=== PATIENT | female | born 1985 | race American Indian/Alaskan Native ===

== ENCOUNTER 2018-03-27 22:49 | Emergency (ER) | payer MEDICAID ==
[2018-03-28] MEDS ORDERED: FUL-GLO OP ONE (00:04)
[2018-03-28] MEDS ORDERED: TETRACAINE 0.5% OU ONE (00:05)
--- NOTE | 2018-03-28 00:10 | Emergency Department Report ---
Eye Injury/Foreign Body - HPI Eye Location: Right Severity: Moderate Eye Symptoms: Eye Pain: Yes, Blurred Vision: Yes, Eye Redness: No, Grinding/ Hammering Metal: No, Used Eye Protection: No, Contact Lens Use: No, Recalls Injury: No, Photophobia: No Other History: This is a 33-year-old -[place] female who presents with pain to the right eye that started around 1930. She is a sharp pain and clear drainage from right eye. She thought it was associated with allergies to pollen and took Benadryl with no improvement in his symptoms. She does wear contacts but did not wear her contacts today. She decided to apply Visine and some right eye which caused burning and pain to increase. Her vision is the same in left eye and hazy vision out of right. She has noticed redness and irritation in her right eye. Denies swelling, grinding sensation, feeling of curtain over, and fever. ED Review of Systems ROS: Stated complaint: RIGHT EYE PAIN Other details as noted in HPI Constitutional: denies: chills, fever Eyes: eye pain (right eye), eye discharge (right), vision change (hazy vision on right eye) Respiratory: denies: cough, shortness of breath, wheezing Cardiovascular: denies: chest pain, palpitations Gastrointestinal: denies: abdominal pain, nausea, vomiting, diarrhea Neurological: denies: headache, weakness, paresthesias Psychiatric: denies: anxiety, depression ED Past Medical Hx - Past Medical History Previous Medical History?: Yes Hx Hypertension: No Hx Asthma: Yes Additional medical history: constipation - Surgical History Past Surgical History?: Yes Hx Appendectomy: Yes Additional Surgical History: Hernia Repair (Abdominal) - Social History Smoking Status: Never Smoker Substance Use Type: Alcohol - Medications Home Medications: Home Medications Medication Instructions Recorded Confirmed Last Taken Type Albuterol Sulfate [Proair 90 mcg IH Q4HR PRN #2 [email or web address] 12/11/16 12/13/16 Unknown Rx Respiclick] Benzonatate [Tessalon Perles] 100 mg PO Q8HR PRN #30 capsule 12/11/16 12/13/16 Unknown Rx Ketorolac [Toradol] 10 mg PO Q6H PRN #20 tablet 12/11/16 12/13/16 Unknown Rx Fluticasone [Flonase] 1 spray NS QDAY #1 bottle 12/13/16 Unknown Rx traMADol [Ultram 50 MG tab] 50 mg PO Q6HR PRN #10 tablet 12/13/16 Unknown Rx Naproxen Sodium [Anaprox Ds] 550 mg PO BID PRN #15 tablet 03/28/18 Unknown Rx prednisoLONE ACETATE [Omnipred 1% 1 - 2 drop OP QID #1 bottle 03/28/18 Unknown Rx Eye Drops] Eye Injury Exam - Exam General: Vital signs noted. No distress. Alert and acting appropriately. - Visual Acuity Left Vision Acuity Degree: 20/25 Right Vision Acuity Degree: 20/40 Bilateral Vision Acuity Degree: 20/25 Eye Exam: Right Injection, Right Fluorescein Uptake (inflammation in the anterior chamber), Right Photophobia, Both EOMI, Neither Chemosis, Neither Abnormal Pupil, Neither Eye Foreign Body, Neither Lid Foreign Body, Neither Mucous Discharge, Neither Purulent Discharge, Neither Corneal Edema ED Course Vital Signs 03/27/18 03/27/18 22:56 23:04 Temperature 98.3 F 98.3 F Pulse Rate 86 83 Respiratory 18 18 Rate Blood Pressure 153/101 152/101 O2 Sat by Pulse 98 99 Oximetry Vital Signs 03/27/18 03/27/18 03/28/18 22:56 23:04 00:57 Temperature 98.3 F 98.3 F 98.6 F Pulse Rate 86 83 88 Respiratory 18 18 17 Rate Blood Pressure 153/101 152/101 Blood Pressure 135/91 [Right] O2 Sat by Pulse 98 99 100 Oximetry ED Medical Decision Making - Medical Decision Making This is a 33 y.o. female that presents with right eye pain that started this afternoon. Patient is stable and was examined by me. Vitals stable. Currently using OTC Visine for eyes and cool compresses with no improvement of symptoms. Given tramadol 50 mg by mouth once. Physical examined with العراقي light, tetracaine, & flurosceine. Physical assessment susceptible of uveitis of right eye. Start prednisolone 1% gtts. Continue using warm compresses for swelling. Follow up with ophthalmology in 24-48 hours. Critical care attestation.: If time is entered above; I have spent that time in minutes in the direct care of this critically ill patient, excluding procedure time. ED Disposition Clinical Impression: Uveitis, Acute right eye pain Disposition: DC-01 TO HOME OR SELFCARE Is pt being admited?: No Does the pt Need Aspirin: No Condition: Stable Instructions: Eye Pain (ED) Additional Instructions: Cool or warm compresses as needed for swelling. Apply steroid drops 4 times a day as prescribed for 7 days. Follow-up with ophthalmology in 24-48 hours. Return to Primary Care Provider or ER if visual changes, swelling unresolved, and pain unresolved. Prescriptions: Naproxen Sodium [Anaprox Ds] 550 mg PO BID PRN #15 tablet PRN Reason: Pain prednisoLONE ACETATE [Omnipred 1% Eye Drops] 1 - 2 drop OP QID #1 bottle Referrals: [facility] [Provider Group] - 3-5 Days [facility] [Provider Group] - 3-5 Days Time of Disposition: 00:52 Print Language: SWISS
[2018-03-28] MEDS ORDERED: ULTRAM PO ONE (00:46)
[2018-03-28 01:01] VITALS: BP 135/91
== END 2018-03-28 01:20 | disposition home or self-care (01) ==
LOC: ED 22:49
DX: H20.9 Unspecified iridocyclitis (principal); J45.909 Unspecified asthma, uncomplicated; Z90.49 Acquired absence of other specified parts of digestive tract; Z79.899 Other long term (current) drug therapy; Z91.018 Allergy to other foods

== ENCOUNTER 2019-04-12 13:05 | Emergency (ER) | payer MEDICAID ==
[2019-04-12 13:27] VITALS: BP 153/86
--- NOTE | 2019-04-12 13:28 | Emergency Department Report ---
Blank Doc - Documentation Documentation: This is a 34-year-old female that presents with left arm pain and left middle finger pain. Stated that she wake up this way. Denies any trauma. Stated is unable to move finger. This initial assessment/diagnostic orders/clinical plan/treatment(s) is/are subject to change based on patient's health status, clinical progression and re- assessment by fellow clinical providers in the ED. Further treatment and workup at subsequent clinical providers discretion. Patient/guardians urged not to elope from the ED as their condition may be serious if not clinically assessed and managed. Initial orders include: 1- Patient sent to [facility] for further evaluation and treatment
[2019-04-12] MEDS ORDERED: NORCO 7.5/325 PO ONE (13:40)
--- NOTE | 2019-04-12 13:40 | Emergency Department Report ---
HPI - General Chief Complaint: Extremity Injury, Upper Time Seen by Provider: 04/12/19 13:26 - HPI HPI: Patient is a 34-year-old -[place] female who comes to the ER stating that she woke up with her finger stuck in a nearly flexed position. She denies any trauma. She denies a history of this in the past. ED Past Medical Hx - Past Medical History Previous Medical History?: Yes Hx Hypertension: No Hx Asthma: Yes Additional medical history: constipation - Surgical History Past Surgical History?: Yes Hx Appendectomy: Yes Additional Surgical History: Hernia Repair (Abdominal) - Family History Family history: no significant - Social History Smoking Status: Never Smoker - Medications Home Medications: Home Medications Medication Instructions Recorded Confirmed Last Taken Type Naproxen [Naprosyn] 500 mg PO BID PRN #20 tablet 04/12/19 Unknown Rx traMADol [Ultram] 50 mg PO Q6HR PRN #10 tablet 04/12/19 Unknown Rx ED Review of Systems ROS: Stated complaint: CHEST PAIN/FINGER SWOLLEN Other details as noted in HPI Comment: All other systems reviewed and negative Physical Exam - Physical Exam Vital Signs: Vital Signs 04/12/19 13:26 Temperature 98 F Pulse Rate 97 H Respiratory 16 Rate Blood Pressure 153/86 O2 Sat by Pulse 100 Oximetry General: Head Head exam: Present: atraumatic, normocephalic - Eye Eye exam: Present: normal appearance, EOMI. Absent: nystagmus - ENT ENT exam: Present: normal exam, normal orophraynx, mucous membranes moist, normal external ear exam, no lymphadenopathy - Neck Neck exam: Present: normal inspection, full ROM. Absent: tenderness, meningismus - Respiratory Respiratory exam: Present: normal lung sounds bilaterally. Absent: respiratory distress, wheezes, rales, rhonchi, stridor, chest wall tenderness, accessory muscle use, decreased breath sounds, prolonged expiratory - Cardiovascular Cardiovascular Exam: Present: regular rate, normal rhythm, normal heart sounds. Absent: bradycardia, tachycardia, irregular rhythm, systolic murmur, diastolic murmur, rubs, gallop, JVD, edema - GI/Abdominal GI/Abdominal exam: Present: soft, non tender on light and deep palpation. Absent: distended, tenderness, guarding, rebound, rigid, pulsatile mass - Rectal Rectal exam: Present: deferred - Extremities Exam Extremities exam: Present: normal inspection, full ROM, other (2+ pulses noted in the bilateral upper extremities. Bilateral lower extremities with 2+ DP bilateral. Full ROM. middle finger of left hand is flexed; pt can not open it and cries with pain when we extend it. There is rapid cap refill. radial and ulnar pulses are normal. Wrist has full flexion and extension. - Back Exam Back exam: Present: normal inspection, full ROM. Absent: tenderness, CVA tenderness (R), CVA tenderness (L), paraspinal tenderness, vertebral tenderness - Neurological Exam Neurological exam: Present: alert, oriented X3, normal gait, other (Extraocular movements intact. Tongue midline. No facial droop. Facial sensation intact to light touch in the V1, V2, V3 distribution bilaterally. 5 and 5 strength in 4 extremities.. Sensation is intact to light touch in 4 extremities.). Absent: motor sensory deficit - Psychiatric Psychiatric exam: normal affect and mood - Skin Skin exam: Present: warm, dry, intact, normal color. Absent: rash ED Course Vital Signs 04/12/19 13:26 Temperature 98 F Pulse Rate 97 H Respiratory 16 Rate Blood Pressure 153/86 O2 Sat by Pulse 100 Oximetry - Nerve Block Consent Obtained: verbal consent Time Out Performed: Yes Local Anesthetic Used: Marcaine 0.5% Amount of anesthesia used: 3 Side: left Nerve Blocks: digital Procedure Successful: Yes Complications: none Patient Tolerated Procedure: well - Orthopedic Splinting/Casting finger Side: left Upper Extremity Injury Location: finger Upper Extremity Immobilizer: aluminum form splint, Sinan wrap ED Medical Decision Making - Radiology Data Radiology results: report reviewed, image reviewed no fx - Medical Decision Making xray noted medicated for pain digital block was required to get the patients finger in position on a finger splint. rapid cap refill after splint applied. pt is being discharged home with family and outpatient follow up with Dr Claros. Vital Signs 04/12/19 04/12/19 13:26 13:45 Temperature 98 F Pulse Rate 97 H Respiratory 16 18 Rate Blood Pressure 153/86 O2 Sat by Pulse 100 Oximetry - Differential Diagnosis ro fx v mallet finger Critical care attestation.: If time is entered above; I have spent that time in minutes in the direct care of this critically ill patient, excluding procedure time. ED Disposition Clinical Impression: Mallet finger Disposition: DC-01 TO HOME OR SELFCARE Is pt being admited?: No Does the pt Need Aspirin: No Condition: Stable Additional Instructions: DIET TOLERATED MEDS ORDERED TODAY IN ER YOU WILL NEED TO SEE ORTHO MD DR CLAROS'S INFORMATION IS BELOW ACTIVITY TOLERATED MOTRIN OR TYLENOL FOR PAIN OR FEVER RETURN TO THE ER FOR WORSENING SYMPTOMS . SPLINT FOR COMFORT Prescriptions: Naproxen [Naprosyn] 500 mg PO BID PRN #20 tablet PRN Reason: Pain traMADol [Ultram] 50 mg PO Q6HR PRN #10 tablet PRN Reason: Pain Referrals: KAMILA CLAROS MD [Staff Physician] - 3-5 Days Time of Disposition: 14:10
[2019-04-12] MEDS ORDERED: FLEXERIL PO ONE (13:49)
[2019-04-12] MEDS ORDERED: XYLOCAINE 2% INFILTRATI ONE (14:18)
--- NOTE | 2019-04-12 14:30 | XRay Report ---
LEFT FINGERS, 3 VIEWS History: Pain. Findings: There is poor separation of the fingers. The third digit is in flexion on all 3 views. This may be positional in nature. No acute osseous findings or joint pathology is identified. Impression: Slightly limited exam. No bony abnormality is appreciated.
[2019-04-12] MEDS ORDERED: MARCAINE 0.25% INFILTRATI ONE ×2 (14:34→15:18)
[2019-04-12] MEDS ORDERED: MARCAINE-EPI/PF 0.25%-1:200,000 INFILTRATI ONE (14:37)
[2019-04-12] MEDS ORDERED: DILAUDID IM ONE (15:02)
== END 2019-04-12 15:30 | disposition home or self-care (01) ==
LOC: ED 13:05
DX: M20.012 Mallet finger of left finger(s) (principal); I10 Essential (primary) hypertension; J45.909 Unspecified asthma, uncomplicated
CPT/HCPCS: 29130; 73140; 96372; 99283; J1170

== ENCOUNTER 2019-04-26 12:02 | Emergency (ER) | payer MEDICAID ==
[2019-04-26 12:36] VITALS: BP 144/88
[2019-04-26] MEDS ORDERED: FUL-GLO OP ONE (13:30)
[2019-04-26] MEDS ORDERED: TETRACAINE 0.5% OU ONE (13:30)
--- NOTE | 2019-04-26 13:30 | Emergency Department Report ---
Eye Injury/Foreign Body - HPI Duration: 1 Day Eye Location: Right Severity: Severe Eye Symptoms: Eye Pain: Yes (right), Blurred Vision: No, Eye Redness: Yes, Grinding/Hammering Metal: No, Contact Lens Use: Yes, Photophobia: Yes Other History: This is a 34-year-old -[place] female who presents to the emergency room with pain and redness to right eye. Patient states yesterday she was wearing contacts and noticed a clear, over her right eye. When she got home she took the contacts out and apply clear eye drops to both eyes and went to bed. Patient states she woke up this morning she was unable to see out of right eye and experiencing severe sharp pains with redness to bilateral eyes. ED Review of Systems ROS: Stated complaint: RT EYE PAIN/CANT SEE Other details as noted in HPI Constitutional: denies: chills, fever Eyes: eye pain (right eye), eye discharge (bilateral), vision change (right eye) ENT: denies: ear pain, throat pain Respiratory: denies: cough, shortness of breath, wheezing Cardiovascular: denies: chest pain, palpitations Skin: denies: rash, lesions Neurological: denies: headache, weakness, paresthesias Psychiatric: denies: anxiety, depression ED Past Medical Hx - Past Medical History Previous Medical History?: Yes Hx Hypertension: No Hx Asthma: Yes Additional medical history: constipation - Surgical History Past Surgical History?: Yes Hx Appendectomy: Yes Additional Surgical History: Hernia Repair (Abdominal) - Social History Smoking Status: Never Smoker Substance Use Type: None - Medications Home Medications: Home Medications Medication Instructions Recorded Confirmed Last Taken Type Naproxen [Naprosyn] 500 mg PO BID PRN #20 tablet 04/12/19 Unknown Rx traMADol [Ultram] 50 mg PO Q6HR PRN #10 tablet 04/12/19 Unknown Rx Gentamicin 0.3% Ophth Oint 1 applicatio OP Q4H #1 tube 04/26/19 Unknown Rx Eye Injury Exam - Exam General: Vital signs noted. No distress. Alert and acting appropriately. - Visual Acuity Left Vision Acuity Degree: 20/25 Eye Exam: Right Mucous Discharge, Right Fluorescein Uptake (linear vertical abrasion to the lateral conjunctivae), Both Injection, Both EOMI, Neither Chemosis, Neither Abnormal Pupil, Neither Eye Foreign Body, Neither Lid Foreign Body, Neither Purulent Discharge, Neither Fluorescein Uptake (slit lamp), Neither Cell/Flare (slit lamp), Neither Corneal Edema, Neither Photophobia Right Vision Acuity Degree: 20/200 Bilateral Vision Acuity Degree: 20/25 ED Course Vital Signs 04/26/19 12:34 Temperature 98.5 F Pulse Rate 76 Respiratory 20 Rate Blood Pressure 144/88 O2 Sat by Pulse 97 Oximetry ED Medical Decision Making - Medical Decision Making Patient was examined by me. Vitals are normal and patient is in no acute distress. Visual acuity was performed. Right and 20/200 without glasses, bilateral 20/25. Patient states she is unable to see Snellen chart without glasses. Patient reports able to see chart with glasses. Right eye examined with العراقي light. There is a corneal abrasion on right side of iris. Patient wear contact lens. Denies grinding or hammering sensation. Patient informed of results. Start gentamicin ophthalmic ointment. Patient instructed to follow- up with roll threader operator within the next 24 hours. Plan discussed with patient and she agrees with ER plan. Patient discharged home in stable condition. Follow up with PCP in 2-3 days. Critical care attestation.: If time is entered above; I have spent that time in minutes in the direct care of this critically ill patient, excluding procedure time. ED Disposition Clinical Impression: Corneal abrasion of right eye due to contact lens Disposition: DC-01 TO HOME OR SELFCARE Is pt being admited?: No Does the pt Need Aspirin: No Condition: Stable Instructions: Corneal Abrasion (ED) Additional Instructions: Follow-up with roll threader operator within the next 24 hours is discussed. Return to the emergency room if worsening symptoms. Prescriptions: Gentamicin 0.3% Ophth Oint 1 applicatio OP Q4H #1 tube Referrals: HIRAL OSBORN MD [Primary Care Provider] - 3-5 Days EWA GRISSOM MD [Staff Physician] - 3-5 Days [facility] [Provider Group] - 3-5 Days [facility] [Provider Group] - 3-5 Days Forms: Work/School Release Form(ED) Time of Disposition: 14:38
== END 2019-04-26 14:43 | disposition home or self-care (01) ==
LOC: ED 12:02
DX: S05.01XA Injury of conjunctiva and corneal abrasion without foreign body, right eye, initial encounter (principal); I10 Essential (primary) hypertension; J45.909 Unspecified asthma, uncomplicated; Z90.49 Acquired absence of other specified parts of digestive tract; X58.XXXA Exposure to other specified factors, initial encounter; Y93.89 Activity, other specified; Y92.89 Other specified places as the place of occurrence of the external cause; Y99.8 Other external cause status

== ENCOUNTER 2019-12-05 16:19 | Emergency (ER) | payer MEDICAID ==
--- NOTE | 2019-12-05 17:26 | Event Note ---
ED Screening Note Date of service: 12/05/19 Time: 17:23 ED Screening Note: 34 y o female presents with chest pain x today, stabbing type pain This initial assessment/diagnostic orders/clinical plan/treatment(s) is/are subject to change based on patients health status, clinical progression and re- assessment by fellow clinical providers in the ED. Further treatment and workup at subsequent clinical providers discretion. Patient/guardian urged not to elope from the ED as their condition may be serious if not clinically assessed and managed. Initial orders include: labs acc eval
[2019-12-05 17:27] VITALS: BP 135/74
== END 2019-12-05 18:00 | disposition left against medical advice (07) ==
LOC: ED 16:19
DX: R07.89 Other chest pain (principal); Z53.21 Procedure and treatment not carried out due to patient leaving prior to being seen by health care provider
CPT/HCPCS: 93005; 93010

== ENCOUNTER 2020-08-25 19:11 | Emergency (ER) | payer MEDICAID ==
--- NOTE | 2020-08-25 19:19 | Emergency Department Report ---
Blank Doc - Documentation Documentation: 35-year-old female that presents with chest pain and SOB> This initial assessment/diagnostic orders/clinical plan/treatment(s) is/are subject to change based on patient's health status, clinical progression and re- assessment by fellow clinical providers in the ED. Further treatment and workup at subsequent clinical providers discretion. Patient/guardians urged not to elope from the ED as their condition may be serious if not clinically assessed and managed. Initial orders include: 1- Patient sent to ED for further evaluation and treatment 2-cardiac workup
[2020-08-25 19:49] VITALS: BP 154/87
[2020-08-25 20:05] LABS: Basophils % (Auto) 0.5 % (0.0-1.8); Eosinophils # (Auto) 0.2 K/mm3 (0.0-0.4); Eosinophils % (Auto) 2.8 % (0.0-4.3); Hemoglobin 14.8 gm/dl (10.1-14.3); Lymphocytes # (Auto) 2.4 K/mm3 (1.2-5.4); Lymphocytes % (Auto) 30.2 % (13.4-35.0); Mean Corpuscular HGB Conc 34 % (30-34); Mean Corpuscular Volume 84 fl (79-97); Monocytes # (Auto) 0.6 K/mm3 (0.0-0.8); Monocytes % (Auto) 7.9 % (0.0-7.3); Platelet Count 328 K/mm3 (140-440); Red Blood Count 5.23 M/mm3 (3.65-5.03); Red Cell Distribution Width 14.6 % (13.2-15.2)
[2020-08-25 20:16] LABS: Creatine Kinase MB 1.1 ng/mL (0.0-4.0)
[2020-08-25 20:17] LABS: Alanine Aminotransferase 34 units/L (7-56); Albumin 4.1 g/dL (3.9-5); BUN/Creatinine Ratio 11; Blood Urea Nitrogen 10 mg/dL (7-17); Calcium 9.5 mg/dL (8.4-10.2); Hemolysis Index 22
[2020-08-25 20:26] LABS: INR 0.91 (0.87-1.13)
[2020-08-25 20:27] LABS: Partial Thromboplastin Time 26.4 Sec. (24.2-36.6); Thrombin Time 19.5 Sec. (15.1-19.6)
== END 2020-08-25 20:20 | disposition left against medical advice (07) ==
LOC: ED 19:11
DX: R07.89 Other chest pain (principal); R06.02 Shortness of breath; Z53.21 Procedure and treatment not carried out due to patient leaving prior to being seen by health care provider
CPT/HCPCS: 36415; 80053; 82550; 82553; 84484; 84703; 85025; 85610; 85670; 85730; 93005